=== PATIENT | male | born 1960 | race Two or more races ===

== ENCOUNTER → 2019-10-19 | Emergency (ER) | payer MEDICARE, OTHER ==
[~2019-10-19] VITALS: Ht 170.2 cm; Wt 81.6 kg
[~2019-10-19] MED LIST: HYDROmorphone HCL 2 MG/ML VL IV ONE; LABETALOL HCL 5 MG/ML 4ML SYRINGE IV ONE; PROMETHAZINE HCL 25 MG/ML 1ML IV ONE; SODIUM CHLORIDE 0.9% 1,000 ML IV ONE
[2019-10-19 07:30] VITALS: BP 191/114
[2019-10-19 07:55] LABS: Basophils # (auto) 0.1 10 ^3/uL (0-0.2); Basophils % (auto) 0.7 % (0.0-2.0); Eosinophils # (auto) 0 10 ^3/uL (0-0.8); Eosinophils % (auto) 0.1 % (0.0-7.0); Hematocrit 48.9 % (41.0-53.0); Hemoglobin 16.4 g/dL (13.5-17.5); Lymphocytes % (auto) 8.6 % (10.0-50.0); Mean Corpuscular Hemoglobin 30.8 pg (28.0-32.0); Mean Corpuscular Hgb Conc. 33.6 g/dL (32.0-36.0); Mean Corpuscular Volume 91.5 fL (80.0-100.0); Monocytes # (auto) 0.6 10 ^3/uL (0-1.3); Monocytes % (auto) 5.2 % (0.0-12.0); Neutrophils # (auto) 9.6 10 ^3/uL (1.6-8.6); Neutrophils % (auto) 85.4 % (37.0-80.0); Nucleated Red Blood Cells % 0.1 %; Platelet Count (auto) 269 10^3/uL (140-450); Red Blood Cells 5.34 10^6/uL (4.5-5.90); Red Cell Distribution Width 13.9 % (11.8-14.3); White Blood Cell 11.2 10^3/uL (4.4-10.8)
[2019-10-19 08:15] LABS: BUN/Creatinine Ratio 11.8; Calcium 8.8 mg/dL (8.5-10.1); Magnesium 2.2 mg/dL (1.6-2.6); Potassium 3.7 mmol/L (3.5-5.1)
[2019-10-19 08:18] LABS: Bilirubin, Total 0.3 mg/dL (0.2-1.0); Total Protein 8.4 g/dL (6.4-8.2)
== END | disposition home or self-care (01) ==
LOC: ER 06:55
DX: M25.512 Pain in left shoulder (principal); I10 Essential (primary) hypertension; R73.9 Hyperglycemia, unspecified; M54.2 Cervicalgia; R09.81 Nasal congestion
CPT/HCPCS: 36415; 71046; 72125; 73030; 80053; 83735; 85025; 93005; 96374; 96375; 99285; J1170; J2550; J3490; J7030

== ENCOUNTER 2019-11-29 14:53 | Emergency (ER) | payer MEDICARE, MEDICAID ==
[~2019-11-29] VITALS: Ht 170.2 cm; Wt 89.4 kg
[2019-11-29 16:39] VITALS: BP 111/84
[2019-11-29] MEDS ORDERED: BACITRACIN TOP OINT 1 UD PKG TOP ONE (16:45)
[2019-11-29] MEDS ORDERED: TETANUS-DIPTH-ACEL PERTUSSIS 0.5ML SYR Tdap IM ONE (16:45)
== END 2019-11-29 17:01 | disposition home or self-care (01) ==
LOC: ER 14:53
DX: S61.411A Laceration without foreign body of right hand, initial encounter (principal); I10 Essential (primary) hypertension; E11.9 Type 2 diabetes mellitus without complications; J44.9 Chronic obstructive pulmonary disease, unspecified; Z88.8 Allergy status to other drugs, medicaments and biological substances; W26.8XXA Contact with other sharp object(s), not elsewhere classified, initial encounter; Y93.89 Activity, other specified; Y92.89 Other specified places as the place of occurrence of the external cause; Y99.8 Other external cause status
CPT/HCPCS: 12002; 73130; 90471; 90715

== ENCOUNTER 2019-12-15 12:48 | Emergency (ER) | payer MEDICARE, MEDICAID ==
[~2019-12-15] VITALS: Ht 170.2 cm; Wt 89.4 kg
[2019-12-15 13:41] VITALS: BP 115/74
[2019-12-15] MEDS ORDERED: KETOROLAC TROMETH 60MG/2ML VIAL IM ONE (14:30)
== END 2019-12-15 14:50 | disposition home or self-care (01) ==
LOC: ER 12:48
DX: M19.012 Primary osteoarthritis, left shoulder (principal); J44.9 Chronic obstructive pulmonary disease, unspecified; E11.9 Type 2 diabetes mellitus without complications; I10 Essential (primary) hypertension
CPT/HCPCS: 96372; 99283; J1885

== ENCOUNTER 2024-05-21 10:49 | Inpatient (IN) | payer OTHER, MEDICAID ==
[~2024-05-21] VITALS: Ht 170.2 cm; Wt 124.9 kg
[2024-05-21 11:30] LABS: Basophils # (auto) 0 10 ^3/uL (0-0.2); Basophils % (auto) 0.5 % (0.0-2.0); Eosinophils # (auto) 0.1 10 ^3/uL (0-0.8); Eosinophils % (auto) 1.4 % (0.0-7.0); Hematocrit 49.4 % (41.0-53.0); Hemoglobin 16.8 g/dL (13.5-17.5); Lymphocytes # (auto) 2.3 10 ^3/uL (0.4-5.4); Lymphocytes % (auto) 33.4 % (10.0-50.0); Mean Corpuscular Hemoglobin 30.3 pg (28.0-32.0); Mean Corpuscular Hgb Conc. 34.1 g/dL (32.0-36.0); Mean Corpuscular Volume 89.1 fL (80.0-100.0); Monocytes # (auto) 0.6 10 ^3/uL (0-1.3); Neutrophils # (auto) 3.9 10 ^3/uL (1.6-8.6); Neutrophils % (auto) 55.7 % (37.0-80.0); Nucleated Red Blood Cells % 0.2 %; Platelet Count (auto) 259 10^3/uL (140-450); Red Blood Cells 5.54 10^6/uL (4.5-5.90); Red Cell Distribution Width 14.7 % (11.8-14.3); White Blood Cell 6.9 10^3/uL (4.4-10.8)
--- NOTE | 2024-05-21 11:37 | ED.PDOC ---
HPI Comments 63Y M with PMHx DM, HTN, HLD, and COPD presents to ED for chief complaint chest pain. Pt has had the pain intermittently for 2wks. Pt began to experience the chest pain today after waking up. The chest pain is substernal, radiates to rt neck and rt arm, and is described as pressure and tightness. Pt denies nausea, vomiting, and diaphoresis. Allergies include Gabapentin and Ibuprofen. Chief Complaint: Chest Pain Time Seen by MD: 11:12 Primary Care Provider: DENIES Reviewed Notes: Medications, Allergies Allergies: Coded Allergies: Gabapentin (Verified Allergy, Unknown, 12/15/19) Ibuprofen (Verified Allergy, Unknown, 10/19/19) Information Source: Patient Mode of Arrival: Ambulatory Severity: Moderate Timing: Weeks Duration: Intermittent Location: Substernal Radiation: Neck, Arm (R) Quality: Pressure, Tightness Onset: At Rest Cardiac Risk Factors: Hyperlipidemia, HTN, Diabetes PE Risk Factors: None History of: None Modifying Factors: Nothing Associated Signs and Symptoms: Other Past Medical History PAST MEDICAL HISTORY: Angina, Anxiety, CAD, COPD, Depression, DM, HTN, [place], PE Surgical History: Denies all surgeries Family History Family History: Reviewed,noncontributory to illness Social History Smoker: Secondhand Alcohol: Occasionally Drugs: Denies Drug Use Lives In: Home Constitutional: denies: chills, diaphoresis, fatigue, fever, malaise, sweats, weakness, others EENTM: denies: blurred vision, double vision, ear bleeding, ear discharge, ear drainage, ear pain, ear ringing, eye pain, eye redness, hearing loss, mouth pain, mouth swelling, nasal discharge, nose bleeding, nose congestion, nose pain, photophobia, tearing, throat pain, throat swelling, voice changes, others Respiratory: denies: cough, hemoptysis, orthopnea, SOB at rest, shortness of breath, SOB with excertion, stridor, wheezing, others Cardiovascular: reports: chest pain; denies: dizzy spells, diaphoresis, Dyspnea on exertion, edema, irregular heart beat, left arm pain, lightheadedness, palpitations, PND, syncope, others Gastrointestinal: denies: abdomen distended, abdominal pain, blood streaked bowels, constipated, diarrhea, dysphagia, difficulty swallowing, hematemesis, melena, nausea, poor appetite, poor fluid intake, rectal bleeding, rectal pain, vomiting, others Genitourinary: denies: burning, dysuria, flank pain, frequency, hematuria, incontinence, penile discharge, penile sore, pain, testicle pain, testicle swelling, urgency, others Neurological: denies: dizziness, fainting, headache, left sided numbness, left sided weakness, numbness, paresthesia, pre-existing deficit, right sided numbness, right sided weakness, seizure, speech problems, tingling, tremors, weakness, others Musculoskeletal: denies: back pain, gout, joint pain, joint swelling, muscle pain, muscle stiffness, neck pain, others Integumetry: denies: bruises, change in color, change in hair/nails, dryness, laceration, lesions, lumps, rash, wounds, others Allergic/Immunocompromised: denies: Difficulty Healing, Frequent Infections, Hives, Itching, others Hematologic/Lymphatic: denies: anemia, blood clots, easy bleeding, easy bruising, swollen glands, others Endocrine: denies: excessive hunger, excessive sweating, excessive thirst, excessive urination, flushing, intolerance to cold, intolerance to heat, unexplained weight gain, unexplained weight loss, others Psychiatric: denies: anxiety, bipolar disorder, depression, hopeless, panic disorder, schizophrenia, sleepless, suicidal, others All Other Systems: Reviewed and Negative Physical Exam General Appearance: No Apparent Distress, Normal HEENT: Normal ENT Inspection, Pharynx Normal, TMs Normal Neck: Full Range of Motion, Non-Tender, Normal, Normal Inspection Respiratory: Chest Non-Tender, Lungs Clear, No Accessory Muscle Use, No Respiratory Distress, Normal Breath Sounds Cardiovascular: No Edema, No JVD, No Murmur, No Gallop, Normal Peripheral Pulses, Regular Rate/Rhythm Breast Exam: Deferred Gastrointestinal: No Organomegaly, Non Tender, No Pulsatile Mass, Normal Bowel Sounds, Soft Genitalia: Deferred Pelvic: Deferred Rectal: Deferred Extremities: No calf tenderness, Normal capillary refill, Normal inspection, Normal range of motion, Non-tender, No pedal edema Musculoskeletal : Apperance: Normal Neurologic: Alert, typing checker II-XII nml as Tested, No Motor Deficits, Normal Affect, Normal Mood, No Sensory Deficits Cerebellar Function: Normal Reflexes: Normal Skin: Dry, Normal Color, Warm Lymphatic: No Adenopathy Was a procedure done? Was a procedure done?: No CP Differential Dx Differential Diagnosis: Electrolyte Disorder X-Ray, Labs, Meds, VS Vital Signs Date Time Temp Pulse Resp B/P (MAP) Pulse Ox O2 Delivery O2 Flow Rate FiO2 05/21/24 13:49 98.5 76 20 148/96 (113) 97 98.5 05/21/24 11:42 82 05/21/24 11:00 98.0 83 18 111/75 (87) 95 05/21/24 10:55 94 Lab Test 05/21/24 13:52 05/21/24 11:52 05/21/24 11:02 Range/Units Troponin I High Sensitivity 966 *H 60 *H 27 </=54 ng/L White Blood Count 6.9 4.4-10.8 10^3/uL Red Blood Count 5.54 4.5-5.90 10^6/uL Hemoglobin 16.8 13.5-17.5 g/dL Hematocrit 49.4 41.0-53.0 % Mean Corpuscular Volume 89.1 80.0-100.0 fL Mean Corpuscular Hemoglobin 30.3 28.0-32.0 pg Mean Corpuscular Hemoglobin Concent 34.1 32.0-36.0 g/dL Red Cell Distribution Width 14.7 H 11.8-14.3 % Platelet Count 259 140-450 10^3/uL Mean Platelet Volume 8.2 6.9-10.8 fL Neutrophils (%) (Auto) 55.7 37.0-80.0 % Lymphocytes (%) (Auto) 33.4 10.0-50.0 % Monocytes (%) (Auto) 9.0 0.0-12.0 % Eosinophils (%) (Auto) 1.4 0.0-7.0 % Basophils (%) (Auto) 0.5 0.0-2.0 % Neutrophils # (Auto) 3.9 1.6-8.6 10 ^3/uL Lymphocytes # (Auto) 2.3 0.4-5.4 10 ^3/uL Monocytes # (Auto) 0.6 0-1.3 10 ^3/uL Eosinophils # (Auto) 0.1 0-0.8 10 ^3/uL Basophils # (Auto) 0 0-0.2 10 ^3/uL Nucleated Red Blood Cells 0.2 % Sodium Level 141 136-145 mmol/L Potassium Level 4.0 3.5-5.1 mmol/L Chloride Level 109 H 98-107 mmol/L Carbon Dioxide Level 23 20-31 mmol/L Anion Gap 9 5-15 Blood Urea Nitrogen 15 9-23 mg/dL Creatinine 1.37 H 0.700-1.30 mg/dL Glomerular Filtration Rate Calc 58 >90 mL/min BUN/Creatinine Ratio 10.9 10.0-20.0 Serum Glucose 105 74-106 mg/dL Calcium Level 9.8 8.7-10.4 mg/dL Total Bilirubin 0.5 0.2-1.0 mg/dL Aspartate Amino Transferase (AST) 19 13-40 U/L Alanine Aminotransferase (ALT) 33 7-40 U/L Alkaline Phosphatase 82 46-116 U/L Total Protein 8.2 5.7-8.2 g/dL Albumin 4.6 3.2-4.8 g/dL Time of 1ST Reevaluation: 11:42 Reevaluation 1ST: Unchanged Time of 2ND Reevaluation: 16:29 Reevaluation 2ND: Improved Patient Education/Counseling: Diagnosis, Treatment Family Education/Counseling: No Family Present Additional Information Tests ordered and results reviewed: CBC, CMP, Troponin Independent historians include: None. Dr. Doherty interpreted each of the tests and agrees with the result. Results and treatment discussed with the pt and medical personnel. pt does not have ekg changes but his trop is upward trending. i will admit this pt, order aspirin and consult cardiology Departure 1 Departure Time of Disposition: 16:30 Impression: Primary Impression: NSTEMI (non-ST elevated myocardial infarction) Additional Impression: Renal failure Qualified Codes: N19 - Unspecified kidney failure Disposition: 09 ADMITTED INPATIENT Admit to: ICU Condition: Serious Critical Care Note Critical Care Time?: Yes (55 min-critical care time only) Critical care comment: due to the real possibility of patient's condition deteriorating, his care requires my highest attention and readiness to intervene. i assessed the patient, ordered the proper tests and treatments, reassessed him for response, formulated a plan, discussed it with medical personnel, and consultants,. total time include more than 50% face to face contact and does not include any procedures Stability Stability form required: No Heart Score Heart Score: Heart Score Response (Comments) Value History Highly Suspicious 2 EKG Normal 0 Age 45-64 1 Risk Factors 1 or 2 risk factors 1 Troponin >3 x's Normal limit 2 Total 6 I personally scribed for GENET DOHERTY MD ([facility]) on 05/21/24 at 11:37. Electronically submitted by Leonora Hernández ([email or web address]). I personally scribed for GENET DOHERTY MD ([facility]) on 05/21/24 at 11:37. Electronically submitted by Leonora Hernández ([email or web address]). GENET DOHERTY MD May 21, 2024 11:37
[2024-05-21 11:47] LABS: Alanine Aminotransferase 33 U/L (7-40); Albumin 4.6 g/dL (3.2-4.8); Alkaline Phosphatase 82 U/L (46-116); Anion Gap 9 (5-15); Aspartate Aminotransferase 19 U/L (13-40); BUN/Creatinine Ratio 10.9 (10.0-20.0); Blood Urea Nitrogen 15 mg/dL (9-23); Calcium 9.8 mg/dL (8.7-10.4); Carbon Dioxide 23 mmol/L (20-31); Chloride 109 mmol/L (98-107); Glucose 105 mg/dL (74-106); Sodium 141 mmol/L (136-145)
[2024-05-21 11:48] LABS: Bilirubin, Total 0.5 mg/dL (0.2-1.0); Total Protein 8.2 g/dL (5.7-8.2)
--- NOTE | 2024-05-21 12:04 | ECG ---
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
[2024-05-21] MEDS: NITROGLYCERIN 0.4 MG SL TAB SL ONE (16:30)
[2024-05-21] MEDS: ASPirin 325 MG TAB PO ONE (17:54)
[2024-05-21 18:00] VITALS: PULSE 47; RESP 15; O2SAT 97
[2024-05-21] MEDS ORDERED: LORazepam 0.5 MG TAB PO PRN (18:00)
[2024-05-21] MEDS ORDERED: ACETAMINOPHEN 325 MG TAB PO PRN (18:00)
[2024-05-21] MEDS ORDERED: ONDANSETRON HCL 4 MG/2 ML VIAL IV PRN (18:00)
[2024-05-21] MEDS: SODIUM CHLORIDE 0.9% 1,000 ML IV SCH (18:00)
[2024-05-21] MEDS ORDERED: MORPHINE SULFATE INJ 2 MG/ml SYRG IV PRN (18:00)
[2024-05-21] MEDS ORDERED: NITROGLYCERIN 0.4 MG SL TAB SL PRN (18:00)
--- NOTE | 2024-05-21 18:21 | DVHHP2 ---
History of Present Illness Reason for Visit: chest pain History of Present Illness 63 yo obese patient with a heavy former smoking history and continued smoking history patient stated that for the last few days he has had chest pain associated with weakness and episodes of dizziness patient was shown to have elevated trops and on going Cardiovascular: CAD, HTN Smoke: <1 pack per day (former 2 pack a day smoker ) Review of Systems Constitutional: Yes: Weakness; No: Fever, Chills, Sweats, Malaise, Other Eyes: No: Pain, Vision change, Conjunctivae inflammation, Eyelid inflammation, Other, Redness ENT: No: Ear pain, Ear discharge, Nose pain, Nose discharge, Nose congestion, Mouth pain, Mouth swelling, Throat pain, Throat swelling, Other Respiratory: Cough, Shortness of breath; No: Dry, SOB with excertion, Wheezing, Hemoptysis, Pleuritic Pain, Sputum, Wheezing, Other Cardiovascular: Chest Pain, Palpitations; No: Orthopnea, Paroxysmal Noc. Dyspnea, Edema, Lt Headedness, Other Gastrointestinal: No: Nausea, Vomiting, Abdominal Pain, Diarrhea, Constipation, Melena, Hematochezia, Other Genitourinary: No Dysuria, No Frequency, No Incontinence, No Hematuria, No Retention, No Other Musculoskeletal: No: other, neck pain, shoulder pain, arm pain, back pain, hand pain, leg pain, foot pain Skin: No: Rash, Lesions, Jaundice, Bruising, Other Neurological: No: Weakness, Numbness, Incoordination, Change in speech, Confusion, Seizures, Other Allergies: Coded Allergies: Gabapentin (Verified Allergy, Unknown, 12/15/19) Ibuprofen (Verified Allergy, Unknown, 10/19/19) Medications Current Medications Medications Dose Ordered Sig/Ezio Route Start Time Stop Time Status Last Admin Dose Admin Sodium Chloride 1,000 ml @ 30 mls/hr Q24H IV 05/21/24 18:00 UNV Aspirin 81 mg DAILY PO 05/22/24 10:00 UNV Clopidogrel Bisulfate 75 mg DAILY PO 05/22/24 10:00 UNV Atorvastatin Calcium 40 mg HS PO 05/21/24 22:00 UNV Acetaminophen 650 mg Q6HP PRN PO 05/21/24 18:00 UNV Zolpidem Tartrate 5 mg QHSP PRN PO 05/21/24 18:00 UNV Lorazepam 0.5 mg Q6HP PRN PO 05/21/24 18:00 UNV Docusate Sodium 100 mg DAILY PO 05/22/24 10:00 UNV Enoxaparin Sodium 120 mg Q12HR SC 05/21/24 22:00 UNV Ondansetron HCl 4 mg Q4HP PRN IV 05/21/24 18:00 UNV Lisinopril 10 mg DAILY PO 05/22/24 10:00 UNV Nitroglycerin 0.4 mg Q5MINP PRN SL 05/21/24 18:00 UNV Morphine Sulfate 2 mg Q30M PRN IV 05/21/24 18:00 UNV Exam Vital Signs Vital Signs Date Time Temp Pulse Resp B/P (MAP) Pulse Ox O2 Delivery O2 Flow Rate FiO2 05/21/24 17:15 40 10 142/77 (98) 99 05/21/24 13:49 98.5 98.5 General Appearance: Alert, Oriented X3, Cooperative, moderate distress HEENT: Atraumatic, PERRLA, EOMI Respiratory: Clear to auscultation Cardiovascular: Regular rate (appears to have heart block ), Normal S1, Normal S2 Abdominal: Normal bowel sounds, Soft Extremities: No clubbing, No cyanosis Skin: No rashes, No breakdown Neuro: Normal gait, Normal speech Psych/Mental Status: Mood NL Labs/Xrays Labs Test 05/21/24 13:52 05/21/24 11:02 Range/Units Troponin I High Sensitivity 966 *H </=54 ng/L White Blood Count 6.9 4.4-10.8 10^3/uL Red Blood Count 5.54 4.5-5.90 10^6/uL Hemoglobin 16.8 13.5-17.5 g/dL Hematocrit 49.4 41.0-53.0 % Mean Corpuscular Volume 89.1 80.0-100.0 fL Mean Corpuscular Hemoglobin 30.3 28.0-32.0 pg Mean Corpuscular Hemoglobin Concent 34.1 32.0-36.0 g/dL Red Cell Distribution Width 14.7 H 11.8-14.3 % Platelet Count 259 140-450 10^3/uL Mean Platelet Volume 8.2 6.9-10.8 fL Neutrophils (%) (Auto) 55.7 37.0-80.0 % Lymphocytes (%) (Auto) 33.4 10.0-50.0 % Monocytes (%) (Auto) 9.0 0.0-12.0 % Eosinophils (%) (Auto) 1.4 0.0-7.0 % Basophils (%) (Auto) 0.5 0.0-2.0 % Neutrophils # (Auto) 3.9 1.6-8.6 10 ^3/uL Lymphocytes # (Auto) 2.3 0.4-5.4 10 ^3/uL Monocytes # (Auto) 0.6 0-1.3 10 ^3/uL Eosinophils # (Auto) 0.1 0-0.8 10 ^3/uL Basophils # (Auto) 0 0-0.2 10 ^3/uL Nucleated Red Blood Cells 0.2 % Sodium Level 141 136-145 mmol/L Potassium Level 4.0 3.5-5.1 mmol/L Chloride Level 109 H 98-107 mmol/L Carbon Dioxide Level 23 20-31 mmol/L Anion Gap 9 5-15 Blood Urea Nitrogen 15 9-23 mg/dL Creatinine 1.37 H 0.700-1.30 mg/dL Glomerular Filtration Rate Calc 58 >90 mL/min BUN/Creatinine Ratio 10.9 10.0-20.0 Serum Glucose 105 74-106 mg/dL Calcium Level 9.8 8.7-10.4 mg/dL Total Bilirubin 0.5 0.2-1.0 mg/dL Aspartate Amino Transferase (AST) 19 13-40 U/L Alanine Aminotransferase (ALT) 33 7-40 U/L Alkaline Phosphatase 82 46-116 U/L Total Protein 8.2 5.7-8.2 g/dL Albumin 4.6 3.2-4.8 g/dL Assessment/Plan Assessment/Plan Admit to Step Down Chest Pain NSTEMI elevated trops > 900 signs of bigemeni with intermittent runs pf Complete heart block Heart rate in the 30s pacer pads placed cardio consulted likely need for possible pacer and cath morbidly obese > 42 chest pain protocol therapeutic lovenox CCT 42 mins Plan discussed with: Patient My Orders Orders - EVERARDO STONE MD Procedure Category Date Status Time Stat Ekg With Andrew MARY 05/21/24 In Process 17:47 * Cardiology Consult CONS 05/21/24 Transmitted 17:47 Admit ADMIT 05/21/24 Transmitted 18:00 Code Status CODE 05/21/24 Transmitted 18:00 Dope Pourer USMAN 05/21/24 In Process 18:00 Cardiac DIET 05/21/24 Transmitted Diet-2gna,Lofat,Lochol Dinner Sodium Chloride 0.9% PHA 05/21/24 Logged 18:00 Aspirin Tablet PHA 05/22/24 Logged 10:00 Clopidogrel Bisulfate PHA 05/22/24 Logged (Plavix) 10:00 Atorvastatin (Lipitor) PHA 05/21/24 Logged 22:00 Acetaminophen Tablet PHA 05/21/24 Logged (Tylenol Tablet) 18:00 Zolpidem Tartrate PHA 05/21/24 Logged (Ambien) 18:00 Lorazepam Tablet PHA 05/21/24 Logged (Ativan Tablet) 18:00 Docusate Sodium PHA 05/22/24 Logged Capsule (Colace 10:00 Complete Blood Count LAB 05/22/24 Verified 04:00 Basic Metabolic Panel LAB 05/22/24 Verified 04:00 Echo 2d Mode Cardiac US 05/21/24 Logged DOP 18:00 Enoxaparin Sodium PHA 05/21/24 Logged (Lovenox) 22:00 Ondansetron Hcl PHA 05/21/24 Logged (Zofran) 18:00 Electrocardigram EKG 05/21/24 Logged 18:00 Alum & Mag PHA 05/21/24 Logged Hydrox-Simethicone 18:00 Troponin-I Hs LAB 05/21/24 Logged 18:00 Lisinopril Tablet PHA 05/22/24 Logged (Zestril Tablet) 10:00 Cardiac USMAN 05/21/24 In Process Rehabilitation - Outpa Nitroglycerin PHA 05/21/24 Logged Sublingual (Ntrostat 18:00 Morphine Sulfate PHA 05/21/24 Logged Injection 18:00 Stat Ekg For Chest USMAN 05/21/24 In Process Pain 18:00 Notify Of Changes [facility] 05/21/24 In Process From Base 18:00 Vending Machine Servicer For USMAN 05/21/24 In Process 24 Hours 18:00 Emergency Dysrhythmia USMAN 05/21/24 In Process Protocol 18:00 Rhythm Strips Once [facility] 05/21/24 In Process Every Shift 18:00 Oxygen By Nasal RT 05/21/24 Transmitted Cannula 18:00 Electrocardigram EKG 05/21/24 Logged 21:00 Troponin-I Hs LAB 05/21/24 Logged 21:00 Problem List: (1) Heart block AV third degree (2) Hyperglycemia (3) Uncontrolled hypertension (4) NSTEMI (non-ST elevated myocardial infarction) Date of Service: May 21, 2024 Billing Provider: EVERARDO STONE MD Common Visit Codes: [id number] CARE 30-74 MIN EVERARDO STONE MD May 21, 2024 18:21
[2024-05-21] MEDS: MAALOX PLUS or MAALOX 30 ML PO ONE (18:41)
[2024-05-21 19:30] VITALS: PULSE 55; RESP 14; O2SAT 95
[2024-05-21] MEDS: DOPamine 1600MCG/ML D5W 250 ML IV SCH (19:30)
[2024-05-21] MEDS: DOPamine 1600MCG/ML D5W 250 ML IV ONE (19:30)
--- NOTE | 2024-05-21 21:22 | DVHINCON2 ---
Date of service: May 21, 2024 Referring Physician Meghan Reason for Consultation NSTEMI History of Present Illness This is a 63 year old male with a PMH of DM, HTN, HLD, and COPD presents to ED for a complaints of intermittent chest pain x 2 weeks. Patient reports chest pain worsened today after waking up. Patient describes his chest pain is substernal, radiates to right neck and arm, and notes pressure and tightness. E KG is NSR at 82. Patients last stress test was in 2018 and normal. TROP 27 >60 > 966, 5768. Patient was admitted to the hospital. I am asked to consult on this patient Allergies: Coded Allergies: Gabapentin (Verified Allergy, Unknown, 12/15/19) Ibuprofen (Verified Allergy, Unknown, 10/19/19) Current Medications Current Medications Medications (Trade) Dose Ordered Sig/Ezio Route PRN Reason Start Time Stop Time Status Last Admin Sodium Chloride 1,000 ml @ 30 mls/hr Q24H IV 05/21/24 18:00 05/21/24 18:00 Aspirin 81 mg DAILY PO 05/22/24 10:00 Clopidogrel Bisulfate (Plavix) 75 mg DAILY PO 05/22/24 10:00 Atorvastatin Calcium (Lipitor) 40 mg HS PO 05/21/24 22:00 Acetaminophen (Tylenol Tablet) 650 mg Q6HP PRN PO MILD PAIN (1-3 PAIN SCALE) 05/21/24 18:00 Zolpidem Tartrate (Ambien) 5 mg QHSP PRN PO FOR INSOMNIA 05/21/24 18:00 Lorazepam (Ativan Tablet) 0.5 mg Q6HP PRN PO ANXIETY 05/21/24 18:00 Docusate Sodium (Colace Capsule) 100 mg DAILY PO 05/22/24 10:00 Enoxaparin Sodium (Lovenox) 120 mg Q12HR SC 05/21/24 22:00 Ondansetron HCl (Zofran) 4 mg Q4HP PRN IV NAUSEA / VOMITING 05/21/24 18:00 Lisinopril (Zestril Tablet) 10 mg DAILY PO 05/22/24 10:00 Nitroglycerin (Ntrostat Sublingual) 0.4 mg Q5MINP PRN SL FOR CHEST PAIN 05/21/24 18:00 Morphine Sulfate 2 mg Q30M PRN IV FOR CHEST PAIN 05/21/24 18:00 Dopamine HCl/ Dextrose 250 ml @ 22.894 mls/ hr [id number] IV 05/21/24 19:30 05/21/24 19:30 Review of Systems Constitutional: denies: chills, diaphoresis, fatigue, fever, malaise, sweats, weakness, others EENTM: denies: blurred vision, double vision, ear bleeding, ear discharge, ear drainage, ear pain, ear ringing, eye pain, eye redness, hearing loss, mouth pa in, mouth swelling, nasal discharge, nose bleeding, nose congestion, nose pain, photophobia, tearing, throat pain, throat swelling, voice changes, others Respiratory: denies: cough, hemoptysis, orthopnea, SOB at rest, shortness of breath, SOB with excertion, stridor, wheezing, others Cardiovascular: reports: chest pain; denies: dizzy spells, diaphoresis, Dyspnea on exertion, edema, irregular heart beat, left arm pain, lightheadedness, palpitations, PND, syncope, others Gastrointestinal: denies: abdomen distended, abdominal pain, blood streaked bow els, constipated, diarrhea, dysphagia, difficulty swallowing, hematemesis, melena, nausea, poor appetite, poor fluid intake, rectal bleeding, rectal pain, vomiting, others Genitourinary: denies: burning, dysuria, flank pain, frequency, hematuria, incontinence, penile discharge, penile sore, pain, testicle pain, testicle swelling, urgency, others Neurological: denies: dizziness, fainting, headache, left sided numbness, left sided weakness, numbness, paresthesia, pre-existing deficit, right sided numbness, right sided weakness, seizure, speech problems, tingling, tremors, weakness, others Musculoskeletal: denies: back pain, gout, joint pain, joint swelling, muscle pain, muscle stiffness, neck pain, others Integumetry: denies: bruises, change in color, change in hair/nails, dryness, laceration, lesions, lumps, rash, wounds, others Allergic/Immunocompromised: denies: Difficulty Healing, Frequent Infections, Hives, Itching, others Hematologic/Lymphatic: denies: anemia, blood clots, easy bleeding, easy bruising, swollen glands, others Endocrine: denies: excessive hunger, excessive sweating, excessive thirst, excessive urination, flushing, intolerance to cold, intolerance to heat, unexplained weight gain, unexplained weight loss, others Psychiatric: denies: anxiety, bipolar disorder, depression, hopeless, panic disorder, schizophrenia, sleepless, suicidal, others All Other Systems: Reviewed and Negative Vital Signs Vital Signs Date Time Temp Pulse Resp B/P (MAP) Pulse Ox O2 Delivery O2 Flow Rate FiO2 05/21/24 20:00 119/64 05/21/24 20:00 46 12 94 05/21/24 19:30 98.0 98.0 05/21/24 18:00 Nasal Cannula* 2 28 Physical Exam GENERAL: Awake, alert, oriented. LUNGS: Clear. CARDIOVASCULAR: Heart sounds are good. ABDOMEN: Soft. Labs/Diagnostic Data Labs Test 05/21/24 18:32 05/21/24 11:02 Range/Units Troponin I High Sensitivity 5768 *H </=54 ng/L White Blood Count 6.9 4.4-10.8 10^3/uL Red Blood Count 5.54 4.5-5.90 10^6/uL Hemoglobin 16.8 13.5-17.5 g/dL Hematocrit 49.4 41.0-53.0 % Mean Corpuscular Volume 89.1 80.0-100.0 fL Mean Corpuscular Hemoglobin 30.3 28.0-32.0 pg Mean Corpuscular Hemoglobin Concent 34.1 32.0-36.0 g/dL Red Cell Distribution Width 14.7 H 11.8-14.3 % Platelet Count 259 140-450 10^3/uL Mean Platelet Volume 8.2 6.9-10.8 fL Neutrophils (%) (Auto) 55.7 37.0-80.0 % Lymphocytes (%) (Auto) 33.4 10.0-50.0 % Monocytes (%) (Auto) 9.0 0.0-12.0 % Eosinophils (%) (Auto) 1.4 0.0-7.0 % Basophils (%) (Auto) 0.5 0.0-2.0 % Neutrophils # (Auto) 3.9 1.6-8.6 10 ^3/uL Lymphocytes # (Auto) 2.3 0.4-5.4 10 ^3/uL Monocytes # (Auto) 0.6 0-1.3 10 ^3/uL Eosinophils # (Auto) 0.1 0-0.8 10 ^3/uL Basophils # (Auto) 0 0-0.2 10 ^3/uL Nucleated Red Blood Cells 0.2 % Sodium Level 141 136-145 mmol/L Potassium Level 4.0 3.5-5.1 mmol/L Chloride Level 109 H 98-107 mmol/L Carbon Dioxide Level 23 20-31 mmol/L Anion Gap 9 5-15 Blood Urea Nitrogen 15 9-23 mg/dL Creatinine 1.37 H 0.700-1.30 mg/dL Glomerular Filtration Rate Calc 58 >90 mL/min BUN/Creatinine Ratio 10.9 10.0-20.0 Serum Glucose 105 74-106 mg/dL Calcium Level 9.8 8.7-10.4 mg/dL Total Bilirubin 0.5 0.2-1.0 mg/dL Aspartate Amino Transferase (AST) 19 13-40 U/L Alanine Aminotransferase (ALT) 33 7-40 U/L Alkaline Phosphatase 82 46-116 U/L Total Protein 8.2 5.7-8.2 g/dL Albumin 4.6 3.2-4.8 g/dL Assessment Heart block AV third degree. Hyperglycemia. Uncontrolled hypertension. NSTEMI (non-ST elevated myocardial infarction). Plan/Recommendation I agree with your ongoing assessment and care of plan. Echocardiogram. Lisinopril. Aspirin, Lipitor, Plavix. Dopamine drip. DVT prophylactics. Morphine for pain management. Additional plan as per the hospital course. Critical care time of 90 minutes provided to include time spent evaluation of patient at bedside, when appropriate patient/family education for diagnosis, treatment plan, review of pertinent medical information and discussion of care with specialty providers and PCP. Plan discussed with: Patient MARIA G CHIN MD May 21, 2024 20:26
[2024-05-21] MEDS: ENOXAPARIN SOD 120 MG/0.8 ML SYRINGE SC SCH (22:26)
[2024-05-21] MEDS: ATORVASTATIN 20 MG TAB PO SCH (22:26)
[2024-05-22] VITALS (80 sets, daily range): BP systolic 88–161; BP diastolic 44–107; PULSE 8–136; RESP 10–31; TEMP 98–98.7; O2SAT 7–100
--- NOTE | 2024-05-22 00:22 | ECG ---
[facility] Test Date: 2024-05-21 Test Time: 20:49:27 Pat Name: WHIT VIEYRA Department: ED Room: 0236T Gender: M [place]: : 1960 Requested By: WOODROW KERN Order Number: [id number] Reading MD: Saji Prieto Measurements Intervals [place] Rate: 88 P: 76 HI: 168 QRS: 134 QRSD: 107 T: -60 QT: 357 QTc: 432 Interpretive Statements Sinus arrhythmia Ventricular premature complex Inferoposterior infarct, recent Probable anterolateral infarct, old Abnrm T, consider ischemia, anterolateral lds Electronically Signed On 05-24-2024 8:23:59 PST by Saji Prieto Please click the below link to view image of tracing.
--- NOTE | 2024-05-22 00:23 | ECG ---
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
[2024-05-22 06:16] LABS: Basophils # (auto) 0.1 10 ^3/uL (0-0.2); Basophils % (auto) 0.6 % (0.0-2.0); Eosinophils # (auto) 0 10 ^3/uL (0-0.8); Eosinophils % (auto) 0.2 % (0.0-7.0); Hematocrit 46.4 % (41.0-53.0); Lymphocytes # (auto) 1.4 10 ^3/uL (0.4-5.4); Lymphocytes % (auto) 14.7 % (10.0-50.0); Mean Corpuscular Hemoglobin 30.6 pg (28.0-32.0); Mean Corpuscular Hgb Conc. 34.5 g/dL (32.0-36.0); Mean Corpuscular Volume 88.8 fL (80.0-100.0); Monocytes # (auto) 0.6 10 ^3/uL (0-1.3); Monocytes % (auto) 6.2 % (0.0-12.0); Neutrophils # (auto) 7.4 10 ^3/uL (1.6-8.6); Neutrophils % (auto) 78.3 % (37.0-80.0); Nucleated Red Blood Cells % 0.1 %; Platelet Count (auto) 264 10^3/uL (140-450); Red Blood Cells 5.23 10^6/uL (4.5-5.90); Red Cell Distribution Width 14.7 % (11.8-14.3); White Blood Cell 9.5 10^3/uL (4.4-10.8)
[2024-05-22 06:27] LABS: Anion Gap 10 (5-15); Calcium 9.6 mg/dL (8.7-10.4); Carbon Dioxide 22 mmol/L (20-31); Chloride 109 mmol/L (98-107); Potassium 3.7 mmol/L (3.5-5.1); Sodium 141 mmol/L (136-145)
[2024-05-22 06:32] LABS: Glucose 131 mg/dL (74-106)
[2024-05-22 06:33] LABS: BUN/Creatinine Ratio 13.7 (10.0-20.0); Blood Urea Nitrogen 17 mg/dL (9-23)
[2024-05-22] MEDS: LISINOPRIL 5 MG TAB PO SCH (10:00)
[2024-05-22] MEDS: DOCUSATE SOD 100 MG CAP PO SCH (10:13)
[2024-05-22] MEDS: ASPirin 81 mg TAB PO SCH (10:13)
[2024-05-22] MEDS: CLOPIDOGREL BISULFATE 75 MG TAB PO SCH (10:13)
--- NOTE | 2024-05-22 17:53 | DVHPN2 ---
Assessment/Plan Assessment/Plan ICU progress note Subjective 63 M admitted for NSTEMI. Have 3rd deg AV block, ortostatic tachycardia, seen by cardio, palced on dobutamine drip Objective Physical exam Alert, oriented x3 PERRLA Obese Clear breath sounds bilaterally S1-S2 regular rate and rhythm no murmur Abdomen soft nontender, no organomegaly Moving all four extremities Trace lower extremity edema Lab troponin elevation elevated BNP elevated creatinine Imaging CXR clear Assessment and plan 3rd deg AV block COPD HTN DM possible HFrEF pedning echo read KENIA VMN Admit to ICU cardio consult appreciated c/w dopamine drip likely need PPM and possibly ischemic workup if hemodynamicly unstable will add TCP trend CR strict I&O insert reed daily weights Lines pIV Maintain potassium of 4, phosphate of 3 and magnesium of 2 Diet cardiac GI prophylaxis n/a DVT prophylaxis lovenox *89 minutes critical care time spent on this patient including evaluation, chart review, formulating plan and communication with team, excluding any procedures or point of care imaging Plan discussed with: Patient My Orders Orders - IZABELLA GAFFNEY MD Procedure Category Date Status Time Bipap/Cpap For Sleep RT 05/22/24 Logged Apnea 12:28 Insert Reed Catheter USMAN 05/22/24 In Process 13:43 Date of Service: May 22, 2024 Billing Provider: IZABELLA GAFFNEY MD Common Visit Codes: [id number] INP/OBS CARE(HIGH), [id number] CARE 30-74 MIN, [id number] CARE-EACH +30MIN IZABELLA GAFFNEY MD May 22, 2024 17:53
--- NOTE | 2024-05-22 17:55 | DVHSR ---
APPROVED REPORT EXAM: Two-dimensional and M-mode echocardiogram with Doppler and color Doppler. Blood Pressure: 109/71 mmHg INDICATION Chest Pain Surgery/Intervention Open heart (pericardial repair?) RISK FACTORS Obesity: Height: 5'7", Weight: 268 DIMENSIONS LVDd4.9 (3.8-5.7cm)LA (2D)4.5 (1.9-4.0cm)Aortic Root3.5 (2.0-3.7cm) LVDs3.8 (2.5-4.0cm)LA (MM) (1.9-4.0cm)Aortic Cusp Exc1.8 (1.5-2.0cm) EF (%) 50.0 (55-70%)Rt. Atrium4.1 (1.9-4.0cm)Asc. Aorta cm IVSd1.0 (0.7-1.1cm)RV (D) (1.8-2.4cm) PWd1.1 (0.7-1.1cm) Mitral Valve MitralMitral Stenosis E wave0.51m/sMV Mean GR.mmHg A wave0.79m/sMV Peak GR.mmHg E/A ratio0.62D MVAcm2 DECEL [id number] 1/2 Timems Aortic Valve Aortic ValveAortic Stenosis V10.81m/Ruddy Mean GR.5mmHg V21.54m/Ruddy Peak GR.9mmHg LVOT Diameter1.9 (1.8-2.4cm)Doppler AVA1.49cm2 Pulmonic Valve V21.29m/s Tricuspid Valve TR Velocity2.37m/s [id number] Other Information Technically limited study due to body habitus. Conclusion MODERATE DEGREE LVH AND MODERATE DEGREE LV DIASTOLIC DYSFUNCTION LV EJECTION FRACTION IS 55% MODERATE DEGREE MR MODERAELY DILATED LA NORMAL VALVES NO EFFUSION
[2024-05-22] MEDS: IODIXANOL 320MG/ML 100ML BTL IV ONE (20:12)
[2024-05-22] MEDS: ANGIOMAX 250 MG VIAL IV ONE ×2 (20:12→21:26)
[2024-05-22] MEDS: SODIUM CHL 0.9% 50 ML ONE ×2 (20:12→21:26)
[2024-05-22] MEDS: MIDAZOLAM HCL 2MG/2ML 2ml VIAL (1mg/ml) ONE (20:12)
[2024-05-22] MEDS: fentaNYL CITRATE 100 MCG/2 ML VL ONE (20:12)
[2024-05-22] MEDS: LIDOCAINE 2%HCL (LOCAL ANESTH.) INJ 20ML MDV ONE (20:13)
[2024-05-22] MEDS: VERAPAMIL 2.5MG/ML INJ 2ML VIAL IV ONE ×2 (20:23→21:34)
[2024-05-22] MEDS: HEPARIN SODIUM (PORCINE) 5000 UNITS/ML 1ML VIAL ONE (20:23)
--- NOTE | 2024-05-22 20:38 | DVH ---
CHEST RADIOGRAPH Indication: PRE-OP Technique: Single frontal view of the chest was obtained Comparison: None FINDINGS: Lines and Tubes: None Lungs: Clear Pleura: No effusion. No pneumothorax. Cardiomediastinal contours: Unremarkable Bones: Unremarkable IMPRESSION: 1. Clear lungs.
[2024-05-22 21:08] LABS: INR 1.03 (0.9-1.15); Partial Thromboplastin Time 35.9 SEC (24.5-34.5); Prothrombin Time 10.9 sec (9.3-11.8)
--- NOTE | 2024-05-22 21:21 | DVHPN2 ---
Progress Note - Dictate Date Seen: May 22, 2024 Medical Necessity Reason Pt with a Central, PICC or Fol: No Subjective Patient was seen and evaluated in follow nup in the ICU. Patient complains of generalized pain. Patient is noted to have tachycardia in the 130's while standing. Echocardiogram shows an EF of 55%. Patient is advised for left heart cath, risks and benefits were discussed with the patient. vital signs Vital Sign Date Time Temp Pulse Resp B/P (MAP) Pulse Ox O2 Delivery O2 Flow Rate FiO2 05/22/24 12:50 80 05/22/24 12:45 15 110/69 (83) 97 05/22/24 12:00 Nasal Cannula* 2 28 05/22/24 12:00 98.0 98.0 Total Intake and Output 05/21/24 05/21/24 05/22/24 15:00 23:00 07:00 Intake Total 370.258 ml Output Total 0 ml Balance 370.258 ml medications Current Medications Medications Dose Ordered Sig/Ezio Route Start Time Stop Time Status Last Admin Dose Admin Sodium Chloride 1,000 ml @ 30 mls/hr Q24H IV 05/21/24 18:00 05/21/24 18:00 30 MLS/HR Aspirin 81 mg DAILY PO 05/22/24 10:00 05/22/24 10:13 81 MG Clopidogrel Bisulfate 75 mg DAILY PO 05/22/24 10:00 05/22/24 10:13 75 MG Atorvastatin Calcium 40 mg HS PO 05/21/24 22:00 05/21/24 22:26 40 MG Acetaminophen 650 mg Q6HP PRN PO 05/21/24 18:00 Zolpidem Tartrate 5 mg QHSP PRN PO 05/21/24 18:00 Lorazepam 0.5 mg Q6HP PRN PO 05/21/24 18:00 Docusate Sodium 100 mg DAILY PO 05/22/24 10:00 05/22/24 10:13 100 MG Enoxaparin Sodium 120 mg Q12HR SC 05/21/24 22:00 05/22/24 10:13 120 MG Ondansetron HCl 4 mg Q4HP PRN IV 05/21/24 18:00 Lisinopril 10 mg DAILY PO 05/22/24 10:00 Nitroglycerin 0.4 mg Q5MINP PRN SL 05/21/24 18:00 Morphine Sulfate 2 mg Q30M PRN IV 05/21/24 18:00 Dopamine HCl/ Dextrose 250 ml @ 22.894 mls/ hr [id number] IV 05/21/24 19:30 05/22/24 05:07 22.894 MLS/HR objective GENERAL: Awake, alert, oriented. LUNGS: Clear. CARDIOVASCULAR: Heart sounds are good. ABDOMEN: Soft. laboratory and microbiology Laboratory Tests 05/22/24 05:30 Test 05/22/24 05:30 Range/Units Serum Glucose 131 H 74-106 mg/dL Problem List Heart block AV third degree. Hyperglycemia. Uncontrolled hypertension. NSTEMI (non-ST elevated myocardial infarction). Assessment/Plan Continued all current supportive medical care. Lisinopril. Aspirin, Lipitor, Plavix. Dopamine drip. DVT prophylactics. Morphine for pain management. Additional plan as per the hospital course. Critical care time of 45 minutes provided to include time spent evaluation of patient at bedside, when appropriate patient/family education for diagnosis, treatment plan, review of pertinent medical information and discussion of care with specialty providers and PCP. Plan discussed with: Patient MARIA G CHIN MD May 22, 2024 13:27
[2024-05-22] MEDS: CLOPIDOGREL BISULFATE 75 MG TAB ONE (22:08)
[2024-05-22] MEDS: SODIUM CHLORIDE 0.9% 1,000 ML IV SCH (23:15)
[2024-05-22] MEDS: SODIUM CHLORIDE 0.9% 1,000 ML IV ONE (23:30)
--- NOTE | 2024-05-22 23:46 | DVHOP ---
DATE OF SURGERY: 05/22/2024 TECHNIQUES PERFORMED: * Emergency case. * Ultrasound of the right radial artery. * Insertion of 6-Ukrainian arterial line from right radial artery. * Management of conscious sedation. * Left coronary artery angiography. * Mechanical thrombectomy of the circumflex artery with a 6-Ukrainian Remsen catheter. * Balloon angioplasty of the circumflex artery with 2.25 x 12 mm length semi-compliant balloon. * Stenting and angioplasty of circumflex artery with 2.5 x 15 mm length Tom Sealevel stent of Mogotest. COMPLICATIONS: None. ASSISTANTS: Assisted by our staff over here is Sanket Patel. Other assistants are Eric Chester, and Karli. INDICATIONS: The patient had thrombus noted into the circumflex artery and PERLA grade 2 flow has been noted. DESCRIPTION OF PROCEDURE: Procedure risks and benefits discussed. In a standard manner, we have put an EBU catheter, unable to engage it. Subsequently, we used a JL3.5 catheter and 6-Ukrainian guiding catheter, able to engage the left coronary angio done. We also put a Runthrough wire. IV Angiomax also had been already given. Subsequently, we put Remsen catheter and mechanical thrombectomy was done. Subsequently, angiography revealed complete blockage of the artery. So now, we put a balloon and balloon angiography was done and then the artery had been widely opened. Now, we put a stent 2.5 x 15 mm length [place] Sealevel stent of Mogotest and the stent was fully deployed. The procedure went well. CONCLUSIONS: Now prior to performing the procedure; * The left circumflex artery, which had a thrombus noted in the mid region 99% blocked. PERLA grade 2 flow. * Post-procedure PERLA grade 3 flow. Residual stenosis is 0%. No spasm, no dissection, no thrombosis. PLAN OF ACTION: We are going to do the angioplasty, stenting of the obtuse marginal artery. Please also note that the right coronary artery is a large artery and filling up retrogradely with the help of the left coronary system. Prince Jerez MD MP/RADHA/ANURADHA TID: [id number] RECEIPT: [id number] [facility]
[2024-05-23] VITALS (22 sets, daily range): BP systolic 103–168; BP diastolic 53–100; PULSE 58–77; RESP 14–19; TEMP 97.5–98.7; O2SAT 95–100
--- NOTE | 2024-05-23 00:05 | DVHOP ---
DATE OF SURGERY: 05/22/2024 TECHNIQUE PERFORMED: * Emergency case. * Ultrasound of the radial artery. * Insertion of 6-Stateless arterial line from right radial artery. * Left heart cath. * Management of conscious sedation. * Tejon selective left and right coronary artery angiography. COMPLICATIONS: None. ASSISTANTS: Assisted by Jorge Coles Jenny, Angela, and Miguel. This is an emergency case. INDICATIONS: The patient's troponin went up to more than 5000, 10/10 chest pain. DESCRIPTION OF PROCEDURE: Risks, benefits all have been explained and understood very well. He was brought to our mechanical laboratory technician for urgently on this Thursday evening. The right lower arm was thoroughly cleaned with soap and Betadine and lidocaine was given. Ultrasound was done. A 6-Stateless arterial line was placed in a standard manner. The patient was given 100 mcg of intraarterial nitroglycerin, 2.5 mg of verapamil, 2000 units of heparin was given and subsequently now we put a TIG catheter 5-Stateless 4.0 and we were able to do the right coronary angiography with the help of JL3.5 catheter, we were able to do the left coronary angiography. Subsequently, we also did a left heart cath also. IMPRESSION: * Normal left main. * Left anterior descending artery had junction of the proximal and the mid region, there is underlying eccentric 90% narrowing followed by another narrowing, which is also in the range of 80%. This is a type C lesion. * The patient with the mid and distal region of the left renal artery normal. * Circumflex and obtuse marginal artery, circumflex artery have underlying thrombus had been noted in the mid region. PERLA grade 2 flow has been noted. * The obtuse marginal artery arising from the circumflex also has a 99% narrowing. * The right coronary artery 100% occluded at its mid region had been filling up retrogradely with the help of the left coronary system. PERLA grade 3 flow has been noted in the left anterior descending artery, in the left main. PLAN OF ACTION: Advised the patient to undergo the intervention on the circumflex artery followed by obtuse marginal artery. Prince Jerez MD MP/MAURO/ANURADHA TID: [id number] RECEIPT: [id number] [facility]
[2024-05-23] MEDS ORDERED: hydrALAZINE HCL 20 MG/ML VL IV PRN (00:30)
--- NOTE | 2024-05-23 01:19 | DVHOP ---
DATE OF SURGERY: 05/22/2024 TECHNIQUE PERFORMED: * Emergency case. * Left coronary angiography. * Management of conscious sedation. * Balloon angioplasty of the obtuse marginal artery with 2.25 x 12 mm length semi-compliant balloon. * Stenting and angioplasty of the obtuse marginal artery with 2.5 x 15 mm length Tom Sully stent of [employer] Spartoo. COMPLICATIONS: None. ASSISTANTS: Assisted by our staff over here is Sanket Collado and Len. Today 05/22 on Thursday evening. Emergency case. INDICATIONS: The patient has a 99% narrowing of the large obtuse marginal artery with PERLA grade 2 flow. DESCRIPTION OF PROCEDURE: Risks, benefits all have been explained. The patient understood very well. The patient was in cardiac catheterization technician. We already initially have put a JL 3.5 6-Uzbek guiding catheter. Angiomax also was given. Runthrough wire was passed and subsequently we put a balloon 2.25 x 12 mm balloon angioplasty was done. Balloon had been taken for 20 seconds. Balloon had been removed. Subsequently, we put a stent 2.5 x 15 mm length [place] Sully stent of getupp deployed at total of 14 atmospheres and inflated for 31 seconds. Balloon was deflated. Balloon had been discontinued. Angiography was done. Result was satisfactory. Subsequently, we pulled out both the wire. Angiography was done and result is successful. CONCLUSION: Balloon wire all have been discontinued after doing the final angiography. IMPRESSION: Prior to performing the procedure, the left obtuse marginal artery was 99% blocked. PERLA grade 2 flow. Post-procedure, 100% widely open PERLA grade 3 flow, no spasm, no dissection, no thrombosis. PLAN OF ACTION: * The patient did have underlying critical 2 lesions noted in the left anterior descending artery, which cannot be done at this time because the patient got radiation for more than 20 minutes. * The patient was dye load. * The patient needs to be hydrated very well over the next 48 hours and bring him back after the 48 hour in the cardiac catheterization technician to fix type C lesion in left anterior descending artery, which may need excessive amount of the dye. Please also note that his right coronary artery is 100% blocked up, so we need to keep him here to fix the left anterior descending artery and during this procedure, he may need shockwave balloon and atherectomy and lesion is very, very critical and he is not in a condition to be discharged or transferred from the facility. Prince Jerez MD MP/TERESSA/SONIA TID: [id number] RECEIPT: [id number] [facility]
[2024-05-23 06:41] LABS: Basophils # (auto) 0 10 ^3/uL (0-0.2); Basophils % (auto) 0.6 % (0.0-2.0); Eosinophils # (auto) 0.1 10 ^3/uL (0-0.8); Eosinophils % (auto) 1.3 % (0.0-7.0); Hematocrit 41.9 % (41.0-53.0); Hemoglobin 14.4 g/dL (13.5-17.5); Lymphocytes # (auto) 1.8 10 ^3/uL (0.4-5.4); Lymphocytes % (auto) 21.2 % (10.0-50.0); Mean Corpuscular Hemoglobin 30.5 pg (28.0-32.0); Mean Corpuscular Hgb Conc. 34.3 g/dL (32.0-36.0); Monocytes # (auto) 0.7 10 ^3/uL (0-1.3); Monocytes % (auto) 8.1 % (0.0-12.0); Neutrophils # (auto) 5.9 10 ^3/uL (1.6-8.6); Neutrophils % (auto) 68.8 % (37.0-80.0); Platelet Count (auto) 232 10^3/uL (140-450); Red Blood Cells 4.71 10^6/uL (4.5-5.90); Red Cell Distribution Width 14.7 % (11.8-14.3); White Blood Cell 8.6 10^3/uL (4.4-10.8)
[2024-05-23 07:20] LABS: Alanine Aminotransferase 27 U/L (7-40); Alkaline Phosphatase 59 U/L (46-116); Anion Gap 8 (5-15); Aspartate Aminotransferase 33 U/L (13-40); Blood Urea Nitrogen 16 mg/dL (9-23); Carbon Dioxide 24 mmol/L (20-31); Chloride 111 mmol/L (98-107); Glucose 124 mg/dL (74-106); Potassium 3.4 mmol/L (3.5-5.1); Sodium 143 mmol/L (136-145)
[2024-05-23 07:21] LABS: Albumin 4.1 g/dL (3.2-4.8); Magnesium 2.4 mg/dL (1.6-2.6)
[2024-05-23 07:22] LABS: Bilirubin, Total 0.5 mg/dL (0.2-1.0); Phosphorus 2.3 mg/dL (2.4-5.1); Total Protein 6.8 g/dL (5.7-8.2)
--- NOTE | 2024-05-23 18:19 | DVHPN2 ---
Progress Note - Dictate Date Seen: May 23, 2024 Medical Necessity Reason Pt with a Central, PICC or Fol: No Subjective Patient was seen and evaluated in follow up. Patient has been downgraded. Patient underwent PTCA and stent of circumflex and obtuse marginal. The patient did have underlying critical 2 lesions noted in the left anterior descending artery, which cannot be done at this time because the patient got radiation for more than 20 minutes. The patient was dye load. The patient needs to be hydrated very well over the next 48 hours and bring him back after the 48 hour in the medical laboratory technicians to fix type C lesion in left anterior descending artery, which may need excessive amount of the dye. Please also note that his right coronary artery is 100% blocked up, so we need to keep him here to fix the left anterior descending artery and during this procedure, he may need shockwave balloon and atherectomy and lesion. The patient is very, very critical and he is not in a condition to be discharged or transferred from the facility. vital signs Vital Sign Date Time Temp Pulse Resp B/P (MAP) Pulse Ox O2 Delivery O2 Flow Rate FiO2 05/23/24 17:33 98.3 65 18 114/53 (73) 97 98.3 05/23/24 08:00 Nasal Cannula* 3 32 Total Intake and Output 05/22/24 05/22/24 05/23/24 15:00 23:00 07:00 Intake Total 377.364 ml 634.470 ml 1550 ml Output Total 800 ml 650 ml Balance 377.364 ml -165.530 ml 900 ml medications Current Medications Medications Dose Ordered Sig/Ezio Route Start Time Stop Time Status Last Admin Dose Admin Sodium Chloride 1,000 ml @ 30 mls/hr Q24H IV 05/21/24 18:00 05/22/24 19:38 30 MLS/HR Aspirin 81 mg DAILY PO 05/22/24 10:00 05/23/24 10:47 81 MG Clopidogrel Bisulfate 75 mg DAILY PO 05/22/24 10:00 05/23/24 10:47 75 MG Atorvastatin Calcium 40 mg HS PO 05/21/24 22:00 05/22/24 22:00 40 MG Acetaminophen 650 mg Q6HP PRN PO 05/21/24 18:00 Zolpidem Tartrate 5 mg QHSP PRN PO 05/21/24 18:00 Lorazepam 0.5 mg Q6HP PRN PO 05/21/24 18:00 Docusate Sodium 100 mg DAILY PO 05/22/24 10:00 05/23/24 10:47 100 MG Enoxaparin Sodium 120 mg Q12HR SC 05/21/24 22:00 05/23/24 10:47 120 MG Ondansetron HCl 4 mg Q4HP PRN IV 05/21/24 18:00 Lisinopril 10 mg DAILY PO 05/22/24 10:00 05/23/24 10:49 10 MG Nitroglycerin 0.4 mg Q5MINP PRN SL 05/21/24 18:00 Morphine Sulfate 2 mg Q30M PRN IV 05/21/24 18:00 Dopamine HCl/ Dextrose 250 ml @ 22.894 mls/ hr [id number] IV 05/21/24 19:30 05/22/24 16:07 22.894 MLS/HR Sodium Chloride 1,000 ml @ 100 mls/hr Q10H IV 05/22/24 23:15 05/22/24 23:15 100 MLS/HR Hydralazine HCl 10 mg Q6HP PRN IV 05/23/24 00:30 objective GENERAL: Awake, alert, oriented. LUNGS: Clear. CARDIOVASCULAR: Heart sounds are good. ABDOMEN: Soft. laboratory and microbiology Laboratory Tests 05/23/24 05:27 05/23/24 05:23 Test 05/23/24 05:23 Range/Units Serum Glucose 124 H 74-106 mg/dL Problem List Heart block AV third degree. Hyperglycemia. Uncontrolled hypertension. NSTEMI (non-ST elevated myocardial infarction). Assessment/Plan Continued all current supportive medical care. Lisinopril. Aspirin, Lipitor, Plavix. Dopamine drip. DVT prophylactics. Morphine for pain management. Additional plan as per the hospital course. A total of 25 minutes was spent reviewing the patient record, examining the patient, making a diagnostic and therapeutic plan, discussing this plan with medical personnel, following up on diagnostic studies and following the patient for clinical stability excluding any and all procedures. At least 50% of this time was spent in direct, [id number] contact. Plan discussed with: Patient MARIA G CHIN MD May 23, 2024 18:14
--- NOTE | 2024-05-23 19:49 | DVHPN2 ---
Assessment/Plan Assessment/Plan Progress note Subjective 63 M admitted for NSTEMI. Have 3rd deg AV block, ortostatic tachycardia, seen by cardio, palced on dobutamine drip Patient is seen by me today during rounds s/p BART x2 circ and OM, plan for staged PCI 05/05 unstable to transfer Objective Physical exam Alert, oriented x3 PERRLA Obese Clear breath sounds bilaterally S1-S2 regular rate and rhythm no murmur Abdomen soft nontender, no organomegaly Moving all four extremities Trace lower extremity edema Lab troponin elevation elevated BNP elevated creatinine Imaging CXR clear Assessment and plan 3rd deg AV block COPD HTN DM HFpEF AR KENIA VMN downgrade to tele cardio consult appreciated d/c dopamine drip if hemodynamicly unstable will add TCP trend CR strict I&O insert reed daily weights ivf post contrast bipap at night Lines pIV Maintain potassium of 4, phosphate of 3 and magnesium of 2 Diet cardiac GI prophylaxis n/a DVT prophylaxis lovenox Plan discussed with: Patient Date of Service: May 23, 2024 Billing Provider: IZABELLA GAFFNEY MD Common Visit Codes: [id number] INP/OBS CARE(HIGH) IZABELLA GAFFNEY MD May 23, 2024 19:49
[2024-05-23] MEDS: ZOLPIDEM TARTRATE 5 MG TAB PO PRN (21:31)
[2024-05-24] VITALS (8 sets, daily range): BP systolic 106–115; BP diastolic 55–73; PULSE 56–65; RESP 17–18; TEMP 97.8–98.8; O2SAT 95–99
[2024-05-24 05:33] LABS: Basophils # (auto) 0.1 10 ^3/uL (0-0.2); Basophils % (auto) 0.6 % (0.0-2.0); Eosinophils # (auto) 0.2 10 ^3/uL (0-0.8); Eosinophils % (auto) 1.9 % (0.0-7.0); Hematocrit 41.9 % (41.0-53.0); Hemoglobin 14.3 g/dL (13.5-17.5); Lymphocytes # (auto) 2.3 10 ^3/uL (0.4-5.4); Lymphocytes % (auto) 26.8 % (10.0-50.0); Mean Corpuscular Hemoglobin 30.4 pg (28.0-32.0); Mean Corpuscular Hgb Conc. 34.2 g/dL (32.0-36.0); Monocytes # (auto) 0.8 10 ^3/uL (0-1.3); Neutrophils # (auto) 5.2 10 ^3/uL (1.6-8.6); Neutrophils % (auto) 61.7 % (37.0-80.0); Nucleated Red Blood Cells % 0.1 %; Platelet Count (auto) 220 10^3/uL (140-450); Red Blood Cells 4.71 10^6/uL (4.5-5.90); Red Cell Distribution Width 14.2 % (11.8-14.3); White Blood Cell 8.5 10^3/uL (4.4-10.8)
[2024-05-24 05:53] LABS: Chloride 110 mmol/L (98-107); Potassium 4.1 mmol/L (3.5-5.1); Sodium 141 mmol/L (136-145)
[2024-05-24 05:54] LABS: Anion Gap 6 (5-15); Calcium 9.3 mg/dL (8.7-10.4); Carbon Dioxide 25 mmol/L (20-31)
[2024-05-24 05:59] LABS: BUN/Creatinine Ratio 10.7 (10.0-20.0); Blood Urea Nitrogen 13 mg/dL (9-23); Glucose 93 mg/dL (74-106)
--- NOTE | 2024-05-24 21:45 | DVHPN2 ---
Assessment/Plan Assessment/Plan Progress note Subjective 63 M admitted for NSTEMI. Have 3rd deg AV block, ortostatic tachycardia, seen by cardio, palced on dobutamine drip, now off, soft BP Patient is seen by me today during rounds s/p BART x2 circ and OM, plan for staged PCI 05/05. unstable to transfer Objective Physical exam Alert, oriented x3 PERRLA Obese Clear breath sounds bilaterally S1-S2 regular rate and rhythm no murmur Abdomen soft nontender, no organomegaly Moving all four extremities Trace lower extremity edema Lab troponin elevation elevated BNP elevated creatinine Imaging CXR clear Assessment and plan 3rd deg AV block COPD HTN DM HFpEF AR KENIA VMN downgrade to tele cardio consult appreciated d/c dopamine drip start lisinopril trend CR strict I&O insert reed daily weights ivf post contrast bipap at night, have home cpap Lines pIV Maintain potassium of 4, phosphate of 3 and magnesium of 2 Diet cardiac GI prophylaxis n/a DVT prophylaxis lovenox 15 minutes spent educating patient regarding lifestyle modification Plan discussed with: Patient My Orders Orders - IZABELLA GAFFNEY MD Procedure Category Date Status Time BIPAP RT 05/24/24 Logged 09:05 Prothrombin Time W/ LAB 05/25/24 Verified INR 04:00 Partial LAB 05/25/24 Verified Thromboplastin Time 04:00 Basic Metabolic Panel LAB 05/25/24 Verified 04:00 Complete Blood Count LAB 05/25/24 Verified 04:00 Date of Service: May 24, 2024 Billing Provider: COREY MORTENSEN Common Visit Codes: [id number] INP/OBS CARE(HIGH) Secondary Visit Codes: [id number] COUNSELING IND IZABELLA GAFFNEY MD May 24, 2024 21:45
--- NOTE | 2024-05-24 22:37 | DVHPN2 ---
Progress Note - Dictate Date Seen: May 24, 2024 Medical Necessity Reason Pt with a Central, PICC or Fol: No Subjective Patient was seen and evaluated in follow up. No overnight events. Patient denies any pain/discomfort. Patient is receiving IVF hydration. Patient is planned for staged PCI 05/25. Yarding Supervisor is WNL at 1.22. Patient not stable for transfer. vital signs Vital Sign Date Time Temp Pulse Resp B/P (MAP) Pulse Ox O2 Delivery O2 Flow Rate FiO2 05/24/24 22:00 98.8 63 17 106/73 (84) 98 98.8 05/24/24 20:00 Nasal Cannula* 3 32 Total Intake and Output 05/23/24 05/23/24 05/24/24 15:00 23:00 07:00 Intake Total 1530 ml 810 ml Output Total 800 ml 600 ml 1825 ml Balance -800 ml 930 ml -1015 ml medications Current Medications Medications Dose Ordered Sig/Ezio Route Start Time Stop Time Status Last Admin Dose Admin Sodium Chloride 1,000 ml @ 30 mls/hr Q24H IV 05/21/24 18:00 05/23/24 18:32 30 MLS/HR Aspirin 81 mg DAILY PO 05/22/24 10:00 05/24/24 11:19 81 MG Clopidogrel Bisulfate 75 mg DAILY PO 05/22/24 10:00 05/24/24 11:19 75 MG Atorvastatin Calcium 40 mg HS PO 05/21/24 22:00 05/24/24 21:06 40 MG Acetaminophen 650 mg Q6HP PRN PO 05/21/24 18:00 Zolpidem Tartrate 5 mg QHSP PRN PO 05/21/24 18:00 05/24/24 21:06 5 MG Lorazepam 0.5 mg Q6HP PRN PO 05/21/24 18:00 Enoxaparin Sodium 120 mg Q12HR SC 05/21/24 22:00 05/24/24 11:20 120 MG Lisinopril 10 mg DAILY PO 05/22/24 10:00 05/24/24 11:20 10 MG objective GENERAL: Awake, alert, oriented. LUNGS: Clear. CARDIOVASCULAR: Heart sounds are good. ABDOMEN: Soft. laboratory and microbiology Laboratory Tests 05/24/24 05:04 Test 05/24/24 05:04 Range/Units Serum Glucose 93 74-106 mg/dL Problem List Heart block AV third degree. Hyperglycemia. Uncontrolled hypertension. NSTEMI (non-ST elevated myocardial infarction). Assessment/Plan Continued all current supportive medical care. Lisinopril. Aspirin, Lipitor, Plavix. DVT prophylactics. Morphine for pain management. Additional plan as per the hospital course. A total of 25 minutes was spent reviewing the patient record, examining the patient, making a diagnostic and therapeutic plan, discussing this plan with medical personnel, following up on diagnostic studies and following the patient for clinical stability excluding any and all procedures. At least 50% of this time was spent in direct, [id number] contact. Plan discussed with: Patient MARIA G CHIN MD May 24, 2024 22:37
[2024-05-25] VITALS (13 sets, daily range): BP systolic 83–139; BP diastolic 52–89; PULSE 54–91; RESP 12–20; TEMP 97.6–98.9; O2SAT 92–98
[2024-05-25 06:19] LABS: Prothrombin Time 10.6 sec (9.3-11.8)
[2024-05-25 06:25] LABS: Anion Gap 9 (5-15); Carbon Dioxide 25 mmol/L (20-31); Chloride 108 mmol/L (98-107); Sodium 142 mmol/L (136-145)
[2024-05-25 06:26] LABS: Calcium 9.9 mg/dL (8.7-10.4)
[2024-05-25 06:31] LABS: BUN/Creatinine Ratio 11.4 (10.0-20.0); Blood Urea Nitrogen 15 mg/dL (9-23); Glucose 96 mg/dL (74-106)
[2024-05-25 06:38] LABS: Basophils # (auto) 0 10 ^3/uL (0-0.2); Basophils % (auto) 0.7 % (0.0-2.0); Eosinophils # (auto) 0.2 10 ^3/uL (0-0.8); Eosinophils % (auto) 2.5 % (0.0-7.0); Hematocrit 44.7 % (41.0-53.0); Hemoglobin 15.2 g/dL (13.5-17.5); Lymphocytes # (auto) 2.5 10 ^3/uL (0.4-5.4); Lymphocytes % (auto) 34.6 % (10.0-50.0); Mean Corpuscular Hemoglobin 30.3 pg (28.0-32.0); Mean Corpuscular Volume 89.2 fL (80.0-100.0); Monocytes # (auto) 0.6 10 ^3/uL (0-1.3); Monocytes % (auto) 8.2 % (0.0-12.0); Neutrophils # (auto) 3.9 10 ^3/uL (1.6-8.6); Nucleated Red Blood Cells % 0.1 %; Platelet Count (auto) 228 10^3/uL (140-450); Red Blood Cells 5.01 10^6/uL (4.5-5.90); Red Cell Distribution Width 14.3 % (11.8-14.3); White Blood Cell 7.2 10^3/uL (4.4-10.8)
[2024-05-25] MEDS: HEPARIN IN NS 1000Units/500mL 1,500 ML ONE (07:54)
[2024-05-25] MEDS: IODIXANOL 320MG/ML 100ML BTL IV ONE ×4 (07:54→09:42)
[2024-05-25] MEDS: fentaNYL CITRATE 100 MCG/2 ML VL ONE (08:16)
[2024-05-25] MEDS: ANGIOMAX 250 MG VIAL IV ONE ×2 (08:16→09:14)
[2024-05-25] MEDS: MIDAZOLAM HCL 2MG/2ML 2ml VIAL (1mg/ml) ONE ×2 (08:17→09:17)
[2024-05-25] MEDS: LIDOCAINE 2%HCL (LOCAL ANESTH.) INJ 20ML MDV ONE (08:17)
[2024-05-25] MEDS: SODIUM CHL 0.9% 50 ML ONE ×2 (08:17→09:14)
[2024-05-25] MEDS: ATROPINE SULF 1 MG/10ml SYR ONE (09:12)
[2024-05-25] MEDS ORDERED: fentaNYL CITRATE 100 MCG/2 ML VL ONE (10:04)
[2024-05-25] MEDS ORDERED: IODIXANOL 320MG/ML 100ML BTL IV ONE (10:26)
--- NOTE | 2024-05-25 11:07 | DVHOP2 ---
Operative Report - 2 Report Details Date: 05/25/24 Preop Diagnosis: Coronary artery disease. Postop Diagnosis: CAD. Surgeon: Rober Prieto MD Automatic Clipper And Stripper: Dr. Swati Jerez Anesthesiologist: Conscious sedation Anesthesia: Mac, Local Consent: The patient was informed of the risks and benefits of the procedure. These include but are not limited to complications of anesthesia, postoperative infection, incomplete relief of symptoms, recurrence of symptoms, damage to blood vessels, nerves and tendons, deep venous thrombosis, pulmonary embolism and possible need for repeat surgery in the future. Complications: No complications Estimated Blood Loss: 5 cc Findings: Occluded RCA Indications for Surgery: Chronically occluded RCA Name of Procedure Performed Attempted aperture of ACCOUNT RECEIVABLE ASSOCIATE/RCA Procedure Details Procedure Details: Prior full informed consent obtained subsequent to Dr. Jerez intervening on the LAD we attempted aperture of the ACCOUNT RECEIVABLE ASSOCIATE. The RCA subsequent to the acute marginal branches occluded 100%. It is a difficult calcified lesion with a poor R probability of success given an ambiguous plaque and a long ACCOUNT RECEIVABLE ASSOCIATE. We placed a a Teleport microcatheter and a pro via three wire which we escalated to a pro BN nine in an effort to cross the cap. We were successful however we were not able to push the Teleport through. We took a 1.5 euphoria balloon and placed it into the proximal RCA subsequent to breaking the atherosclerotic catheterization. We were able to place the Prolia three wire into the mid RCA segment that had been occluded. We are not able to find the true lumen with the pro BN three. We exchanged for a microcatheter. The fine cross was able to cross into the distal segment however we were not in an actual true lumen. Given the amount of contrast that we add the used in the initial procedure we opted to terminate the case. The patient had no complications. We will stage the aperture with a ACCOUNT RECEIVABLE ASSOCIATE for later date. Condition Good Disposition Still a Patient Date of Service: May 25, 2024 Billing Provider: ROBER PRIETO Sr., MD Cardiology Common Codes: NOT BILLABLE Cardiology Procedure Codes: [id number] CORONARY BRANCH ROBER PRIETO Sr., MD May 25, 2024 11:07
[2024-05-25] MEDS: SODIUM CHLORIDE 0.9% 1,000 ML IV ONE (11:15)
[2024-05-25] MEDS: HYDROmorphone HCL 2 MG/ML VL/or syr IV PRN (11:44)
[2024-05-25] MEDS ORDERED: LISI-275 PO (16:19)
[2024-05-25] MEDS ORDERED: ASPI-325 PO (16:19)
[2024-05-25] MEDS ORDERED: ATOR20TA50 PO (16:19)
[2024-05-25] MEDS ORDERED: CLOP75TA70 PO (16:19)
[2024-05-25 17:19] LABS: Sodium 140 mmol/L (136-145)
[2024-05-25 17:31] LABS: Anion Gap 4 (5-15); BUN/Creatinine Ratio 10.6 (10.0-20.0); Basophils # (auto) 0 10 ^3/uL (0-0.2); Basophils % (auto) 0.5 % (0.0-2.0); Blood Urea Nitrogen 14 mg/dL (9-23); Calcium 9.4 mg/dL (8.7-10.4); Carbon Dioxide 28 mmol/L (20-31); Eosinophils # (auto) 0.1 10 ^3/uL (0-0.8); Hematocrit 41.9 % (41.0-53.0); Hemoglobin 14.2 g/dL (13.5-17.5); Lymphocytes # (auto) 1.4 10 ^3/uL (0.4-5.4); Lymphocytes % (auto) 17.3 % (10.0-50.0); Mean Corpuscular Hemoglobin 30.3 pg (28.0-32.0); Mean Corpuscular Volume 89.1 fL (80.0-100.0); Monocytes # (auto) 0.5 10 ^3/uL (0-1.3); Monocytes % (auto) 6.4 % (0.0-12.0); Neutrophils # (auto) 6.1 10 ^3/uL (1.6-8.6); Neutrophils % (auto) 74.8 % (37.0-80.0); Nucleated Red Blood Cells % 0.1 %; Platelet Count (auto) 214 10^3/uL (140-450); Red Blood Cells 4.71 10^6/uL (4.5-5.90); Red Cell Distribution Width 14.3 % (11.8-14.3); White Blood Cell 8.2 10^3/uL (4.4-10.8)
[2024-05-25 17:33] LABS: Chloride 108 mmol/L (98-107); Glucose 126 mg/dL (74-106)
[2024-05-25] MEDS: SODIUM CHLORIDE 0.9% 1,000 ML IV SCH (18:07)
--- NOTE | 2024-05-25 18:51 | DVHDS2 ---
Discharge Summary Date of Admission May 22, 2024 at 20:33 Date of Discharge: May 25, 2024 Labs/Diagnostic Data: Laboratory Results Test 05/25/24 16:55 05/25/24 05:09 05/23/24 05:23 05/21/24 21:15 White Blood Count 8.2 10^3/uL (4.4-10.8) Red Blood Count 4.71 10^6/uL (4.5-5.90) Hemoglobin 14.2 g/dL (13.5-17.5) Hematocrit 41.9 % (41.0-53.0) Mean Corpuscular Volume 89.1 fL (80.0-100.0) Mean Corpuscular Hemoglobin 30.3 pg (28.0-32.0) Mean Corpuscular Hemoglobin Concent 34.0 g/dL (32.0-36.0) Red Cell Distribution Width 14.3 % (11.8-14.3) Platelet Count 214 10^3/uL (140-450) Mean Platelet Volume 8.1 fL (6.9-10.8) Neutrophils (%) (Auto) 74.8 % (37.0-80.0) Lymphocytes (%) (Auto) 17.3 % (10.0-50.0) Monocytes (%) (Auto) 6.4 % (0.0-12.0) Eosinophils (%) (Auto) 1.0 % (0.0-7.0) Basophils (%) (Auto) 0.5 % (0.0-2.0) Neutrophils # (Auto) 6.1 10 ^3/uL (1.6-8.6) Lymphocytes # (Auto) 1.4 10 ^3/uL (0.4-5.4) Monocytes # (Auto) 0.5 10 ^3/uL (0-1.3) Eosinophils # (Auto) 0.1 10 ^3/uL (0-0.8) Basophils # (Auto) 0 10 ^3/uL (0-0.2) Nucleated Red Blood Cells 0.1 % Sodium Level 140 mmol/L (136-145) Potassium Level 4.0 mmol/L (3.5-5.1) Chloride Level 108 mmol/L (98-107) Carbon Dioxide Level 28 mmol/L (20-31) Anion Gap 4 (5-15) Blood Urea Nitrogen 14 mg/dL (9-23) Creatinine 1.32 mg/dL (0.700-1.30) Glomerular Filtration Rate Calc 60 mL/min (>90) BUN/Creatinine Ratio 10.6 (10.0-20.0) Serum Glucose 126 mg/dL (74-106) Calcium Level 9.4 mg/dL (8.7-10.4) Prothrombin Time 10.6 sec (9.3-11.8) Prothrombin Time INR 1.00 (0.9-1.15) Activated Partial Thromboplast Time 35.0 SEC (24.5-34.5) Phosphorus Level 2.3 mg/dL (2.4-5.1) Magnesium Level 2.4 mg/dL (1.6-2.6) Total Bilirubin 0.5 mg/dL (0.2-1.0) Aspartate Amino Transferase (AST) 33 U/L (13-40) Alanine Aminotransferase (ALT) 27 U/L (7-40) Alkaline Phosphatase 59 U/L (46-116) Total Protein 6.8 g/dL (5.7-8.2) Albumin 4.1 g/dL (3.2-4.8) Troponin I High Sensitivity 5777 ng/L (</=54) Other Laboratory Tests 05/25/24 16:55 Brief Hx & Hospital Course: 63 M admitted for NSTEMI, s/p LHC with 100% RCA and s/p BART in Lcx and OM. Initially on dopamine drip, now off any support, on DAPT. 2nd attempt with staged PCI unable to revasc, to follow up with cardio as outpatient for further intervention. Condition at Discharge: Good Final Diagnosis/Problems List IVCD NSTEMI type 1 s/p BART x2 LCx OM RCA occluded, unable to revasc COPD HTN DM HFpEF AR KENIA VMN Discharge Disposition: Home Discharge Instruct/Medications Diet: Cardiac 2g Na,low cholest Activity: No Restrictions, As Tolerated Follow Up/Referral: CARDIOLOGY Medications: aspirin plavix lipitor lisinopril 35 Discharge Statement: "Patient was advised to return to the ER or call 911 if any headaches, dizziness, shortness of breath, chest pain, abdominal pain, bleeding, fevers, or worsening of medical condition. Patient was counseled about treatment plan, medications, possible side effects, patientverbalized understanding. All questions were answered to the best of my ability. This discharge took greater then 30 minutes in planning, reviewing documentation, counseling the patient, and discussing with other team members." ASSESSMENT ASSESSMENT Assessment CAD. Date of Service: May 25, 2024 Billing Provider: IZABELLA GAFFNEY MD Common Visit Codes: 15941-NIN/OBS DISCH DAY >30min IZABELLA GAFFNEY MD May 25, 2024 18:51
--- NOTE | 2024-05-25 20:22 | DVHPN2 ---
Progress Note - Dictate Date Seen: May 25, 2024 Medical Necessity Reason Pt with a Central, PICC or Fol: No Subjective Patient was seen and evaluated in follow up. Patient is complaining of generalized pain. Patient underwent 2nd attempt with staged PCI, unable to revasc, procedure was terminated. Hematology panel is WNL. vital signs Vital Sign Date Time Temp Pulse Resp B/P (MAP) Pulse Ox O2 Delivery O2 Flow Rate FiO2 05/25/24 11:51 57 14 108/56 (73) 92 05/25/24 10:51 97.7 97.7 05/25/24 07:40 Nasal Cannula* 3 32 Total Intake and Output 05/24/24 05/24/24 05/25/24 15:00 23:00 07:00 Intake Total 1425 ml 250 ml Output Total 1075 ml 1900 ml Balance 350 ml -1650 ml medications Current Medications Medications Dose Ordered Sig/Ezio Route Start Time Stop Time Status Last Admin Dose Admin Sodium Chloride 1,000 ml @ 30 mls/hr Q24H IV 05/21/24 18:00 05/25/24 04:18 30 MLS/HR Aspirin 81 mg DAILY PO 05/22/24 10:00 05/25/24 11:42 81 MG Clopidogrel Bisulfate 75 mg DAILY PO 05/22/24 10:00 05/25/24 11:42 75 MG Atorvastatin Calcium 40 mg HS PO 05/21/24 22:00 05/24/24 21:06 40 MG Acetaminophen 650 mg Q6HP PRN PO 05/21/24 18:00 Zolpidem Tartrate 5 mg QHSP PRN PO 05/21/24 18:00 05/24/24 21:06 5 MG Lorazepam 0.5 mg Q6HP PRN PO 05/21/24 18:00 Enoxaparin Sodium 120 mg Q12HR SC 05/21/24 22:00 05/24/24 11:20 120 MG Lisinopril 10 mg DAILY PO 05/22/24 10:00 05/25/24 10:00 10 MG Hydromorphone HCl 1 mg Q3HPRN PRN IV 05/25/24 11:15 05/25/24 11:44 1 MG objective GENERAL: Awake, alert, oriented. LUNGS: Clear. CARDIOVASCULAR: Heart sounds are good. ABDOMEN: Soft. laboratory and microbiology Laboratory Tests 05/25/24 05:09 Test 05/25/24 05:09 Range/Units Serum Glucose 96 74-106 mg/dL Problem List Heart block AV third degree. DM with Hyperglycemia. Uncontrolled hypertension. NSTEMI type 1 s/p BART x2 LCx OM. RCA occluded, unable to revasc COPD. HFpEF. KENIA. Assessment/Plan Continued all current supportive medical care. Lisinopril. Aspirin, Lipitor, Plavix. DVT prophylactics. Morphine for pain management. Additional plan as per the hospital course. A total of 25 minutes was spent reviewing the patient record, examining the patient, making a diagnostic and therapeutic plan, discussing this plan with medical personnel, following up on diagnostic studies and following the patient for clinical stability excluding any and all procedures. At least 50% of this time was spent in direct, [id number] contact. Plan discussed with: Patient MARIA G CHIN MD May 25, 2024 14:00
[2024-05-26 01:00] VITALS: BP 109/48; PULSE 65; RESP 20; TEMP 98; O2SAT 95
--- NOTE | 2024-05-26 04:14 | DVHOP ---
DATE OF SURGERY: 05/25/2024 TECHNIQUE PERFORMED: * Emergency case. * Ultrasound of the right femoral artery. * Insertion of a 6-[place] long arterial line in the right femoral artery under ultrasound guidance under fluoroscopy. * Management of conscious sedation. * Left coronary angiography. * Balloon angioplasty of left anterior descending artery with Scoreflex 2.5 balloon and inflated up to 2.67. * Stenting and angioplasty of left radial artery from proximal to mid region with a 3.5 x 18 mm length Tom Panola stent of [employer]. * Intravascular ultrasound of the left main and also the left anterior descending artery pre-procedure and also done post-procedure. * Balloon angioplasty of the entire stent with a 3.5 x 12 mm length noncompliant balloon and inflated up to 17 and 19 atmospheres, the mid artery up to almost 3.7 mm in size. * Right jugular angiography. * Perclose of the right femoral artery access. COMPLICATIONS: None. ASSISTANTS: Assisted by our staff Zach Goldberg and [place]. INDICATIONS: The patient has underlying critical stenosis of the left anterior descending artery, almost more than 95% eccentric stenosis, acute coronary syndrome and also type C long calcified lesion. DESCRIPTION OF PROCEDURE: Risks, benefits discussed, brought to our lab. The patient's right groin was shaved and was cleaned with soap and Betadine. I have done ultrasound and also the Doppler study of the leg. Under ultrasound guidance, the artery was punctured after giving lidocaine. A 6-[place] long arterial line was placed in a standard manner under fluoroscopy. We have put a 3.5 XB catheter and left coronary angiography also had been done. Subsequently, we also put over able to go through and subsequently now we have Scoreflex [place] balloon inflated size of the balloon was increased up to 2.67 mm in size inflated x2. Balloon had been discontinued. Subsequently, we put a stent 3.5 x 18 mm Tom Panola stent of [employer] inflate. Please also note that prior to doing the balloon angioplasty, we also put an intravascular ultrasound of the left radial artery and we also measured size of the artery. Now after putting the stent, we again put intravascular ultrasound and we found there is also still some gap between the stent and media, so we put 3.5 x 12 mm length noncompliant balloon inflated up to 17 and 19 atmospheres. Size of the stent was made to 3.7 mm proximally, mid and distally, inflated for 21 seconds x3. Balloon was deflated and angiography was done. Result was satisfactory. After doing this procedure, we also done the right iliofemoral artery angiography and Perclose over the right radial artery also was done. Procedure went well. Now for the procedure of the right coronary artery which has been assisted by me, but done by Dr. Prieto. He is going to dictate it. Prince Jerez MD MP/CARMELITA/APRIL TID: [id number] RECEIPT: [id number] [facility]
[2024-05-26 05:00] VITALS: BP 115/57; PULSE 70; RESP 18; TEMP 98; O2SAT 94
[2024-05-26 08:00] VITALS: PULSE 48; PULSE 64; RESP 16; O2SAT 94
[2024-05-26 09:00] VITALS: BP 116/65; PULSE 64; RESP 16; TEMP 98.6; O2SAT 94
[2024-05-26 12:00] LABS: Potassium 4.1 mmol/L (3.5-5.1); Sodium 141 mmol/L (136-145)
[2024-05-26 12:01] LABS: Anion Gap 9 (5-15); Calcium 9.7 mg/dL (8.7-10.4); Carbon Dioxide 25 mmol/L (20-31)
[2024-05-26 12:05] LABS: Chloride 107 mmol/L (98-107)
[2024-05-26 12:06] LABS: BUN/Creatinine Ratio 11.7 (10.0-20.0); Blood Urea Nitrogen 14 mg/dL (9-23); Glucose 84 mg/dL (74-106)
[2024-05-26 13:00] VITALS: BP 107/63; PULSE 73; RESP 17; TEMP 99; O2SAT 94
[2024-05-26 13:46] VITALS: BP 116/65
[2024-05-26] MEDS ORDERED: SODIUM CHLORIDE 0.9% 500 ML IV ONE (14:15)
--- NOTE | 2024-05-26 20:44 | DVHPN2 ---
Progress Note - Dictate Date Seen: May 26, 2024 Medical Necessity Reason Pt with a Central, PICC or Fol: No Subjective Patient was seen and evaluated in follow up. Patient has no new complaints at this time. Patient denies any cardiac symptoms. Patient is cardiac stable for discharge. vital signs Vital Sign Date Time Temp Pulse Resp B/P (MAP) Pulse Ox O2 Delivery O2 Flow Rate FiO2 05/26/24 09:02 116/65 05/26/24 09:00 98.6 64 16 94 98.6 05/26/24 08:00 Room Air* 0 N/A Nasal Cannula* Total Intake and Output 05/25/24 05/25/24 05/26/24 15:00 23:00 07:00 Intake Total 1480 ml 1980 ml Output Total 1650 ml Balance 1480 ml 330 ml medications Current Medications Medications Dose Ordered Sig/Ezio Route Start Time Stop Time Status Last Admin Dose Admin Aspirin 81 mg DAILY PO 05/22/24 10:00 05/26/24 09:01 81 MG Clopidogrel Bisulfate 75 mg DAILY PO 05/22/24 10:00 05/26/24 09:01 75 MG Atorvastatin Calcium 40 mg HS PO 05/21/24 22:00 05/25/24 22:43 40 MG Acetaminophen 650 mg Q6HP PRN PO 05/21/24 18:00 Zolpidem Tartrate 5 mg QHSP PRN PO 05/21/24 18:00 05/25/24 22:43 5 MG Lorazepam 0.5 mg Q6HP PRN PO 05/21/24 18:00 Enoxaparin Sodium 120 mg Q12HR SC 05/21/24 22:00 05/25/24 22:43 120 MG Lisinopril 10 mg DAILY PO 05/22/24 10:00 05/26/24 09:02 10 MG Hydromorphone HCl 1 mg Q3HPRN PRN IV 05/25/24 11:15 05/25/24 11:44 1 MG Sodium Chloride 1,000 ml @ 70 mls/hr [id number] IV 05/25/24 17:30 05/26/24 06:55 70 MLS/HR objective GENERAL: Awake, alert, oriented. LUNGS: Clear. CARDIOVASCULAR: Heart sounds are good. ABDOMEN: Soft. laboratory and microbiology Laboratory Tests 05/25/24 16:55 Test 05/25/24 16:55 Range/Units Serum Glucose 126 H 74-106 mg/dL Problem List Heart block AV third degree. DM with Hyperglycemia. Uncontrolled hypertension. NSTEMI type 1 s/p BART x2 LCx OM. RCA occluded, unable to revasc COPD. HFpEF. KENIA. Assessment/Plan Continued all current supportive medical care. Lisinopril. Aspirin, Lipitor, Plavix. DVT prophylactics. Morphine for pain management. Additional plan as per the hospital course. A total of 25 minutes was spent reviewing the patient record, examining the patient, making a diagnostic and therapeutic plan, discussing this plan with medical personnel, following up on diagnostic studies and following the patient for clinical stability excluding any and all procedures. At least 50% of this time was spent in direct, [id number] contact. Plan discussed with: Patient MARIA G CHIN MD May 26, 2024 11:41
--- NOTE | 2024-05-26 21:47 | DVHPN2 ---
Assessment/Plan Assessment/Plan Please see discharge summary from 05/26/2024 Plan discussed with: Patient My Orders Orders - IZABELLA GAFFNEY MD Procedure Category Date Status Time Discharge DISCHARGE 05/26/24 Transmitted 13:49 Date of Service: May 27, 2024 Billing Provider: IZABELLA GAFFNEY MD Common Visit Codes: 70947-BFY/OBS DISCH DAY >30min IZABELLA GAFFNEY MD May 26, 2024 21:47
== END 2024-05-26 15:00 | disposition home or self-care (01) | DRG 321 ==
LOC: ER 10:49 → TELE 18:00 → UNDOADMIN 18:00 → TELE 05-22 20:33 → TELE-EAST 05-23 02:06
PROVIDERS: ADMIT Hospitalist; ATTEND Student in an Organized Health Care Education/Training Program
PROC: 027135Z Dilation of Coronary Artery, Two Arteries with Two Drug-eluting Intraluminal Devices, Percutaneous Approach (ICD-10-PCS; principal; 2024-05-22)
PROC: 02C03ZZ Extirpation of Matter from Coronary Artery, One Artery, Percutaneous Approach (ICD-10-PCS; 2024-05-22)
PROC: 4A023N7 Measurement of Cardiac Sampling and Pressure, Left Heart, Percutaneous Approach (ICD-10-PCS; 2024-05-22)
PROC: B211YZZ Fluoroscopy of Multiple Coronary Arteries using Other Contrast (ICD-10-PCS; 2024-05-22)
PROC: 03HY32Z Insertion of Monitoring Device into Upper Artery, Percutaneous Approach (ICD-10-PCS; 2024-05-22)
PROC: 027034Z Dilation of Coronary Artery, One Artery with Drug-eluting Intraluminal Device, Percutaneous Approach (ICD-10-PCS; 2024-05-25)
PROC: 02JA3ZZ Inspection of Heart, Percutaneous Approach (ICD-10-PCS; 2024-05-25)
PROC: 4A023N7 Measurement of Cardiac Sampling and Pressure, Left Heart, Percutaneous Approach (ICD-10-PCS; 2024-05-25)
PROC: B211YZZ Fluoroscopy of Multiple Coronary Arteries using Other Contrast (ICD-10-PCS; 2024-05-25)
PROC: B41FYZZ Fluoroscopy of Right Lower Extremity Arteries using Other Contrast (ICD-10-PCS; 2024-05-25)
PROC: B34HZZ3 Ultrasonography of Right Upper Extremity Arteries, Intravascular (ICD-10-PCS; 2024-05-25)
DX: I21.4 Non-ST elevation (NSTEMI) myocardial infarction (principal); N17.0 Acute kidney failure with tubular necrosis; I44.2 Atrioventricular block, complete; Z68.41 Body mass index [BMI] 40.0-44.9, adult; I50.32 Chronic diastolic (congestive) heart failure; I11.0 Hypertensive heart disease with heart failure; J44.9 Chronic obstructive pulmonary disease, unspecified; F17.210 Nicotine dependence, cigarettes, uncomplicated; E78.5 Hyperlipidemia, unspecified; E11.65 Type 2 diabetes mellitus with hyperglycemia; I25.10 Atherosclerotic heart disease of native coronary artery without angina pectoris; Z88.6 Allergy status to analgesic agent; Z79.4 Long term (current) use of insulin; Z79.899 Other long term (current) drug therapy
CPT/HCPCS: 36415; 37252; 71045; 75710; 80048; 80053; 83735; 84100; 84484; 85025; 85610; 85730; 86850; 86900; 86901; 92928; 92941; 92973; 93005; 93306; 93453; 93458; 99152; 99291; C1874; G0378; J2250; Q9967